=== PATIENT | female | born 1945 | race Caucasian/White ===

== ENCOUNTER 2019-08-14 11:18 | Emergency (ER) | payer MEDICARE, BC ==
[2019-08-14 11:45] VITALS: BP 139/87; PULSE 96
[2019-08-14] MEDS ORDERED: predniSONE 20 MG Tab PO ONE (14:11)
--- NOTE | 2019-08-14 14:14 | EDM.PDOC ---
ED HPI GENERAL MEDICAL PROBLEM - General Chief Complaint: Upper Extremity Injury/Pain Stated Complaint: R WRIST PAIN Time Seen by Provider: 08/14/19 11:33 Source of Information: Reports: Patient History Limitations: Reports: No Limitations - History of Present Illness INITIAL COMMENTS - FREE TEXT/NARRATIVE: Patient is a 74-year-old female who presents with complaints of right wrist redness, pain, swelling that started yesterday afternoon. She said her wrist started getting sore yesterday afternoon and then when she woke this morning it was increasingly painful and swollen. She has been icing the wrist and took some Tylenol prior to coming here. At that time she was not able to move her fingers, however she states it is gradually improving. She does have a history of chronic osteoarthritis. Denies a history of gout. She has had no fever, chills, nausea, vomiting, or diarrhea. Right Wrist Pain Score (Numeric/FACES): 10 - Related Data Allergies Allergy/AdvReac Type Severity Reaction Status Date / Time morphine Allergy Unknown Nausea and Verified 08/14/19 11:37 Vomiting Home Meds: Home Meds Levalbuterol HCl [Xopenex] 2 puff INH ASDIRECTED PRN 03/19/14 [History] amLODIPine [Norvasc] 5 mg PO DAILY 03/19/14 [History] predniSONE [Prednisone] 20 mg PO ASDIRECTED #14 tablet 08/14/19 [Rx] Past Medical History HEENT History: Reports: Impaired Vision Cardiovascular History: Reports: Other (See Below) Other Cardiovascular History: on amlodipine for "poor circulation" Respiratory History: Reports: COPD Gastrointestinal History: Reports: Other (See Below) Other Gastrointestinal History: anorexia, no appetite. - Past Surgical History HEENT Surgical History: Reports: Cataract Surgery Musculoskeletal Surgical History: Reports: Other (See Below) Other Musculoskeletal Surgeries/Procedures:: Right hip replacement, 2015. Social & Family History - Family History Family Medical History: Noncontributory - Tobacco Use Smoking Status *Q: Former Smoker Used Tobacco, but Quit: Yes Month/Year Tobacco Last Used: 07/2013 - Caffeine Use Caffeine Use: Reports: Coffee - Recreational Drug Use Recreational Drug Use: No Review of Systems - Review of Systems Review Of Systems: Comprehensive ROS is negative, except as noted in HPI. ED EXAM, GENERAL - Physical Exam Exam: See Below Exam Limited By: No Limitations General Appearance: Alert, WD/WN, No Apparent Distress Respiratory/Chest: No Respiratory Distress, Lungs Clear, Normal Breath Sounds, No Accessory Muscle Use, Chest Non-Tender Cardiovascular: Normal Peripheral Pulses, Regular Rate, Rhythm, No Edema, No Gallop, No JVD, No Murmur, No Rub Extremities: Other (Redness, swelling, warmth to radial wrist.) Neurological: Alert, Oriented, CN II-XII Intact, Normal Cognition, Normal Gait, Normal Reflexes, No Motor/Sensory Deficits Psychiatric: Normal Affect, Normal Mood Skin Exam: Warm, Dry, Intact, Normal Color, No Rash Course - Vital Signs Last Recorded V/S: Last Vital Signs Temp 98.8 F 08/14/19 11:33 Pulse 96 08/14/19 11:45 Resp 22 H 08/14/19 11:33 BP 139/87 08/14/19 11:45 Pulse Ox 93 L 08/14/19 11:45 - Orders/Labs/Meds Orders: Active Orders 24 hr Category Date Time Status Wrist Comp Min 3V Rt [CR] Stat Exams 08/14/19 11:59 Taken CBC WITH AUTO DIFF [HEME] Stat Lab 08/14/19 13:27 Results SEDIMENTATION RATE AUTO [HEME] Stat Lab 08/14/19 12:03 Ordered DME for Discharge [COMM] Routine Oth 08/14/19 14:11 Ordered Labs: Laboratory Tests 08/14/19 08/14/19 Range/Units 13:27 13:27 WBC 13.05 H (3.98-10.04) K/mm3 RBC 4.44 (3.98-5.22) M/mm3 Hgb 14.0 (11.2-15.7) gm/dl Hct 42.7 (34.1-44.9) % MCV 96.2 H (79.4-94.8) fl MCH 31.5 (25.6-32.2) pg MCHC 32.8 (32.2-35.5) g/dl RDW Std Deviation 45.1 (36.4-46.3) fL Plt Count 312 (182-369) K/mm3 MPV 9.6 (9.4-12.3) fl Neut % (Auto) 72.5 H (34.0-71.1) % Lymph % (Auto) 16.4 L (19.3-51.7) % [place] % (Auto) 9.6 (4.7-12.5) % Eos % (Auto) 0.8 (0.7-5.8) Baso % (Auto) 0.5 (0.1-1.2) % Neut # (Auto) 9.45 H (1.56-6.13) K/mm3 Lymph # (Auto) 2.14 (1.18-3.74) K/mm3 [place] # (Auto) 1.25 H (0.24-0.36) K/mm3 Eos # (Auto) 0.11 (0.04-0.36) K/mm3 Baso # (Auto) 0.07 (0.01-0.08) K/mm3 Uric Acid 4.3 (2.6-6.0) mg/dL C-Reactive Protein 3.0 H* (<1.0) mg/dL Meds: Medications Discontinued Medications Generic Name Dose Route Start Last Admin Trade Name Freq PRN Reason Stop Dose Admin Prednisone 20 mg 08/14/19 14:11 Prednisone PO 08/14/19 14:12 ONETIME ONE Departure - Departure Time of Disposition: 14:14 Disposition: Home, Self-Care 01 Condition: Fair Clinical Impression: Gout Qualifiers: Gout site: wrist Gout etiology: idiopathic Chronicity: acute Laterality: right Qualified Code(s): M10.031 - Idiopathic gout, right wrist - Discharge Information *PRESCRIPTION DRUG MONITORING PROGRAM REVIEWED*: No *COPY OF PRESCRIPTION DRUG MONITORING REPORT IN PATIENT ALPHONSE: No Prescriptions: predniSONE [Prednisone] 20 mg PO ASDIRECTED #14 tablet Referrals: Rebecca Simeon NP [Primary Care Provider] - Forms: ED Department Discharge Additional Instructions: You were seen in the emergency Department today for pain and swelling to her right wrist. X-ray was done and shows no fracture of the wrist. It is possible that she was suffering from gout. A [facility]one [facility] and you have been provided with a wrist splint for comfort. Take the medications as prescribed and wear the wrist splint for comfort. You may also ice the wrist for 20 minutes every 2 hours. Ensure that you are not applying ice directly to the skin. If you're not having substantial improvement in your symptoms over the next 24- 48 hours, I recommend that you call to schedule appointment with a primary care provider. If you experience any worsening symptoms such as fever, chills, nausea, vomiting, weakness or increased redness and swelling, please return to the emergency department. Sepsis Event Note - Evaluation Sepsis Screening Result: No Definite Risk - Focused Exam Vital Signs: Vital Signs Temp Pulse Resp BP Pulse Ox 08/14/19 11:45 96 139/87 93 L 08/14/19 11:33 98.8 F 101 H 22 H 85/66 L 91 L Date Exam was Performed: 08/14/19 Time Exam was Performed: 14:14 - My Orders Last 24 Hours: My Active Orders 08/14/19 11:59 Wrist Comp Min 3V Rt [CR] Stat 08/14/19 12:03 SEDIMENTATION RATE AUTO [HEME] Stat 08/14/19 13:27 CBC WITH AUTO DIFF [HEME] Stat 08/14/19 14:11 DME for Discharge [COMM] Routine - Assessment/Plan Last 24 Hours: My Active Orders 08/14/19 11:59 Wrist Comp Min 3V Rt [CR] Stat 08/14/19 12:03 SEDIMENTATION RATE AUTO [HEME] Stat 08/14/19 13:27 CBC WITH AUTO DIFF [HEME] Stat 08/14/19 14:11 DME for Discharge [COMM] Routine
--- NOTE | 2019-08-15 07:37 | CR ---
Right wrist: Four views of the right wrist were obtained. Comparison: No prior wrist exam. Cysts are noted within the navicular bone and lunate bone. Joint space narrowing is noted between the proximal and distal carpal row. Joint space narrowing is noted off the distal navicular bone. No acute fracture, dislocation or other bony abnormality is seen. Small amount of bony debris is noted around the wrist. Impression: 1. Degenerative change as noted above. 2. Nothing acute is definitely appreciated. Diagnostic code #2 This report was dictated in [place] Standard Time
== END 2019-08-14 14:27 | disposition home or self-care (01) ==
LOC: JD.ED 11:18
DX: M10.031 Idiopathic gout, right wrist (principal); J44.9 Chronic obstructive pulmonary disease, unspecified; Z88.5 Allergy status to narcotic agent; Z87.891 Personal history of nicotine dependence; Z79.52 Long term (current) use of systemic steroids
CPT/HCPCS: 36415; 73110; 84550; 85025; 85652; 86140; 99283; A9270

== ENCOUNTER 2020-04-02 07:46 | Emergency (ER) | payer MEDICARE, BC ==
[2020-04-02 07:56] VITALS: PULSE 144
[2020-04-02] MEDS ORDERED: Diltiazem 50 MG/10 ML SDV IVPUSH ONE (08:03)
[2020-04-02] MEDS ORDERED: Sodium Chloride 0.9% 10 ML Syringe FLUSH PRN (08:03)
[2020-04-02] MEDS ORDERED: Sodium Chloride 0.9% 1,000 ML IV SCH (08:15)
--- NOTE | 2020-04-02 08:27 | EDM.PDOC ---
ED HPI GENERAL MEDICAL PROBLEM - General Chief Complaint: Cardiovascular Problem Stated Complaint: [facility] Time Seen by Provider: 04/02/20 07:52 Source of Information: Reports: Patient, EMS, RN Notes Reviewed - History of Present Illness INITIAL COMMENTS - FREE TEXT/NARRATIVE: 74 yr old female with onset of palpitations, weakness, dizziness about 5 hrs ago. Has had brief episodes of palpitations in the past. hx of Htn. Has smoked in the past. No known hx CAD. No chest or abd pain at time of eval. Treatments CHARGE HAND: Reports: EKG, IV/IO - Related Data Allergies Allergy/AdvReac Type Severity Reaction Status Date / Time morphine Allergy Unknown Nausea and Verified 04/02/20 07:56 Vomiting Home Meds: Home Meds amLODIPine [Norvasc] 5 mg PO DAILY 03/19/14 [History] Albuterol [Ventolin HFA] 2 puff INH BID PRN 04/02/20 [History] Budesonide/Formoterol [Symbicort 160-4.5 MCG] 2 puff INH DAILY 04/02/20 [History] Past Medical History HEENT History: Reports: Impaired Vision Cardiovascular History: Reports: Other (See Below) Other Cardiovascular History: on amlodipine for "poor circulation" Respiratory History: Reports: COPD Gastrointestinal History: Reports: Other (See Below) Other Gastrointestinal History: anorexia, no appetite. - Past Surgical History HEENT Surgical History: Reports: Cataract Surgery Musculoskeletal Surgical History: Reports: Hip Replacement Social & Family History - Family History Family Medical History: Noncontributory - Tobacco Use Smoking Status *Q: Light Tobacco Smoker Years of Tobacco use: 60 Packs/Tins Daily: 0.1 - Caffeine Use Caffeine Use: Reports: Coffee - Recreational Drug Use Recreational Drug Use: No ED ROS GENERAL - Review of Systems Review Of Systems: See Below Constitutional: Denies: Fever, Chills, Diaphoresis HEENT: Reports: No Symptoms Respiratory: Denies: Shortness of Breath, Cough Cardiovascular: Reports: Chest Pain (gone), Palpitations GI/Abdominal: Denies: Abdominal Pain, Nausea, Vomiting Musculoskeletal: Denies: Shoulder Pain, Arm Pain Neurological: Reports: Dizziness ED EXAM, GENERAL - Physical Exam Exam: See Below General Appearance: Alert, No Apparent Distress Head: Atraumatic Neck: Normal Inspection, Other (No JVD) Respiratory/Chest: No Respiratory Distress, Lungs Clear, Normal Breath Sounds Cardiovascular: Irregularly Irregular Back Exam: No: CVA Tenderness (L), CVA Tenderness (R) Neurological: Alert, Oriented, No Motor/Sensory Deficits Skin Exam: Warm, Dry, Normal Color EKG INTERPRETATION EKG Date: 04/02/20 Rhythm: A-Fib P-Wave: Absent QRS: Normal ST-T: Other (mild nonspecific st changes) Course - Vital Signs Last Recorded V/S: Last Vital Signs Temp 97.9 F 04/02/20 07:53 Pulse 144 H 04/02/20 07:53 Resp 19 04/02/20 09:15 BP 104/68 04/02/20 09:15 Pulse Ox 98 04/02/20 09:15 - Orders/Labs/Meds Orders: Active Orders 24 hr Category Date Time Status Chest 1V Frontal [CR] Stat Exams 04/02/20 08:02 Taken Sodium Chloride 0.9% [Normal Saline] 1,000 ml Med 04/02/20 08:15 Active IV ASDIRECTED Sodium Chloride 0.9% [Saline Flush] Med 04/02/20 08:03 Active 10 ml FLUSH ASDIRECTED PRN Peripheral IV Insertion Adult [OM.PC] Stat Oth 04/02/20 08:02 Ordered Medication Orders Sodium Chloride (Normal Saline) 1,000 mls @ 150 mls/hr IV ASDIRECTED [facility] Last Admin: 04/02/20 08:12 Dose: 150 mls/hr Documented by: MITA Sodium Chloride (Saline Flush) 10 ml FLUSH ASDIRECTED PRN PRN Reason: Keep Vein Open Last Admin: 04/02/20 08:13 Dose: 10 ml Documented by: MITA Labs: Laboratory Tests 04/02/20 04/02/20 04/02/20 Range/Units 08:15 08:15 08:15 WBC 13.58 H (3.98-10.04) K/mm3 RBC 4.55 (3.98-5.22) M/mm3 Hgb 14.7 (11.2-15.7) gm/dl Hct 44.9 (34.1-44.9) % MCV 98.7 H (79.4-94.8) fl MCH 32.3 H (25.6-32.2) pg MCHC 32.7 (32.2-35.5) g/dl RDW Std Deviation 52.6 H (36.4-46.3) fL Plt Count 342 (182-369) K/mm3 MPV 8.5 L (9.4-12.3) fl Neut % (Auto) 72.4 H (34.0-71.1) % Lymph % (Auto) 16.6 L (19.3-51.7) % [place] % (Auto) 8.3 (4.7-12.5) % Eos % (Auto) 0.4 L (0.7-5.8) Baso % (Auto) 0.5 (0.1-1.2) % Neut # (Auto) 9.84 H (1.56-6.13) K/mm3 Lymph # (Auto) 2.25 (1.18-3.74) K/mm3 [place] # (Auto) 1.13 H (0.24-0.36) K/mm3 Eos # (Auto) 0.05 (0.04-0.36) K/mm3 Baso # (Auto) 0.07 (0.01-0.08) K/mm3 Manual Slide Review Normal smear PT 10.5 (9.7-11.7) SECONDS INR 0.98 Sodium 139 (136-145) mEq/L Potassium 3.8 (3.5-5.1) mEq/L Chloride 102 (98-107) mEq/L Carbon Dioxide 28 (21-32) mEq/L Anion Gap 12.8 (5-15) BUN 16 (7-18) mg/dL Creatinine 0.8 (0.55-1.02) mg/dL Est Cr Clr Drug Dosing TNP Estimated GFR (MDRD) > 60 (>60) mL/min BUN/Creatinine Ratio 20.0 H (14-18) Glucose 106 (83-115) mg/dL Calcium 8.6 (8.5-10.1) mg/dL Total Bilirubin 0.7 (0.2-1.0) mg/dL AST 16 (15-37) U/L ALT 33 (14-59) U/L Alkaline Phosphatase 62 (46-116) U/L Troponin I < 0.017 (0.00-0.056) ng/mL Total Protein 5.9 L (6.4-8.2) g/dl Albumin 3.1 L (3.4-5.0) g/dl Globulin 2.8 gm/dL Albumin/Globulin Ratio 1.1 (1-2) Meds: Medications Generic Name Dose Route Start Last Admin Trade Name Freq PRN Reason Stop Dose Admin Sodium Chloride 1,000 mls @ 150 mls/hr 04/02/20 08:15 04/02/20 08:12 Normal Saline IV 150 mls/hr ASDIRECTED [place] Administration Sodium Chloride 10 ml 04/02/20 08:03 04/02/20 08:13 Saline Flush FLUSH 10 ml ASDIRECTED PRN Administration Keep Vein Open Discontinued Medications Generic Name Dose Route Start Last Admin Trade Name Freq PRN Reason Stop Dose Admin Diltiazem HCl 20 mg 04/02/20 08:03 04/02/20 08:13 Cardizem IVPUSH 04/02/20 08:04 10 mg ONETIME ONE Administration - Re-Assessments/Exams Free Text/Narrative Re-Assessment/Exam: 04/02/20 08:24 Pt converted to NSR a very short time ago after diltiazam 10 mg IV. 04/02/20 10:25. Continued in NSR, CXR, labs good. Discharge instr. as documented. Departure - Departure Time of Disposition: 09:45 Disposition: Home, Self-Care 01 Condition: Fair Clinical Impression: Atrial fibrillation Qualifiers: Atrial fibrillation type: paroxysmal Qualified Code(s): I48.0 - Paroxysmal atrial fibrillation Instructions: Atrial Fibrillation, [id number] Referrals: Rebecca Simeon [facility]INE [Primary Care Provider] - Forms: ED Department Discharge Additional Instructions: You were on atrial fibrillation on arrival to ED as discussed but you converted back to your normal heart rythm fairly quickly which is good. Rest today, continue current meds. See June Cintron in about 1 week for recheck, call for appt. Return to ED as needed if symptoms reoccuring or worsening in any way. Sepsis Event Note (ED) - Evaluation Sepsis Screening Result: No Definite Risk - Focused Exam Vital Signs: Vital Signs Temp Pulse Resp BP Pulse Ox 04/02/20 09:15 19 104/68 98 04/02/20 07:53 97.9 F 144 H 17 116/95 H 98 - My Orders Last 24 Hours: My Active Orders 04/02/20 08:02 Chest 1V Frontal [CR] Stat Peripheral IV Insertion Adult [OM.PC] Stat 04/02/20 08:03 Sodium Chloride 0.9% [Saline Flush] 10 ml FLUSH ASDIRECTED PRN 04/02/20 08:15 Sodium Chloride 0.9% [Normal Saline] 1,000 ml IV ASDIRECTED - Assessment/Plan Last 24 Hours: My Active Orders 04/02/20 08:02 Chest 1V Frontal [CR] Stat Peripheral IV Insertion Adult [OM.PC] Stat 04/02/20 08:03 Sodium Chloride 0.9% [Saline Flush] 10 ml FLUSH ASDIRECTED PRN 04/02/20 08:15 Sodium Chloride 0.9% [Normal Saline] 1,000 ml IV ASDIRECTED
[2020-04-02 09:57] VITALS: BP 104/68
--- NOTE | 2020-04-02 14:22 | CR ---
Chest: Portable view of the chest was obtained. Comparison: Prior chest x-ray of 03/19/14. Heart size and mediastinum are normal. Lungs are clear but hyperinflated. Bony structures are grossly intact. Impression: 1. Emphysematous change. 2. Nothing acute is seen on portable chest x-ray. Diagnostic code #2 This report was dictated in MDT
== END 2020-04-02 09:55 | disposition home or self-care (01) ==
LOC: JD.ED 07:46
DX: I48.0 Paroxysmal atrial fibrillation (principal); I10 Essential (primary) hypertension; F17.210 Nicotine dependence, cigarettes, uncomplicated; J44.9 Chronic obstructive pulmonary disease, unspecified; Z79.899 Other long term (current) drug therapy; Z88.5 Allergy status to narcotic agent
CPT/HCPCS: 36415; 71045; 80053; 84484; 85025; 85610; 93005; 96361; 96374; 99285; J3490; J7030; 93010; 99284

== ENCOUNTER 2020-04-06 12:28 | Emergency (ER) | payer MEDICARE, BC ==
[2020-04-06] MEDS ORDERED: Sodium Chloride 0.9% 10 ML Syringe FLUSH PRN ×2 (13:05→13:37)
[2020-04-06] MEDS ORDERED: Diltiazem 120 MG Cap.CD PO ONE (13:06)
[2020-04-06 13:19] VITALS: BP 118/77; PULSE 99
--- NOTE | 2020-04-06 13:23 | EDM.PDOC ---
ED HPI GENERAL MEDICAL PROBLEM - General Chief Complaint: Cardiovascular Problem Stated Complaint: A FIB Time Seen by Provider: 04/06/20 12:34 Source of Information: Reports: Patient History Limitations: Reports: No Limitations - History of Present Illness INITIAL COMMENTS - FREE TEXT/NARRATIVE: The patient presents with a rapid heart rate and shortness of breath. She was here 4 days ago for A-fib with RVR. She was given cardizem and she converted. She has been having a rapid heart rate and shortness of breath since then. She has a cough with white phlegm. She has no chest pain. She has no abdominal pain, nausea or vomiting. She has no fever or chills. She does have know COPD and she does smoke some still. She is on albuterol and cymbacort. Onset: Gradual Duration: Day(s): Severity: Moderate Improves with: Reports: None Worsens with: Reports: None Associated Symptoms: Reports: Cough, Shortness of Breath. Denies: Chest Pain, Fever/Chills, Headaches, Nausea/Vomiting - Related Data Allergies Allergy/AdvReac Type Severity Reaction Status Date / Time morphine Allergy Unknown Nausea and Verified 04/02/20 07:56 Vomiting Home Meds: Home Meds amLODIPine [Norvasc] 5 mg PO DAILY 03/19/14 [History] Albuterol [Ventolin HFA] 2 puff INH BID PRN 04/02/20 [History] Budesonide/Formoterol [Symbicort 160-4.5 MCG] 2 puff INH DAILY 04/02/20 [History] Apixaban [Eliquis] 5 mg PO BID #60 tablet 04/06/20 [Rx] Diltiazem [Cardizem CD] 120 mg PO DAILY #30 cap.er 04/06/20 [Rx] predniSONE [Prednisone] 40 mg PO DAILY #10 tablet 04/06/20 [Rx] Past Medical History HEENT History: Reports: Impaired Vision Cardiovascular History: Reports: Other (See Below) Other Cardiovascular History: on amlodipine for "poor circulation" Respiratory History: Reports: COPD Gastrointestinal History: Reports: Other (See Below) Other Gastrointestinal History: anorexia, no appetite. - Past Surgical History HEENT Surgical History: Reports: Cataract Surgery Musculoskeletal Surgical History: Reports: Hip Replacement Social & Family History - Family History Family Medical History: Noncontributory - Caffeine Use Caffeine Use: Reports: Coffee ED ROS GENERAL - Review of Systems Review Of Systems: See Below Constitutional: Reports: No Symptoms HEENT: Reports: No Symptoms Respiratory: Reports: Shortness of Breath, Cough Cardiovascular: Reports: Palpitations. Denies: Chest Pain Endocrine: Reports: No Symptoms GI/Abdominal: Reports: No Symptoms : Reports: No Symptoms ED EXAM, GENERAL - Physical Exam Exam: See Below Exam Limited By: No Limitations General Appearance: Alert, No Apparent Distress Ears: Normal External Exam Nose: Normal Inspection Head: Atraumatic, Normocephalic Neck: Normal Inspection Respiratory/Chest: No Respiratory Distress, Decreased Breath Sounds Cardiovascular: Regular Rate, Rhythm, No Edema, No Murmur GI/Abdominal: Soft, Non-Tender, No Organomegaly, No Mass Back Exam: Normal Inspection Extremities: Normal Inspection Neurological: Alert, Oriented, No Motor/Sensory Deficits EKG INTERPRETATION EKG Date: 04/06/20 Time: 12:41 Rhythm: Other (sinus tachycardia) Rate (Beats/Min): 103 [place]: Normal P-Wave: Present QRS: Normal ST-T: Normal QT: Normal Course - Vital Signs Last Recorded V/S: Last Vital Signs Temp 98.9 F 04/06/20 12:51 Pulse 99 04/06/20 13:18 Resp 24 H 04/06/20 12:51 BP 118/77 04/06/20 13:18 Pulse Ox 93 L 04/06/20 12:51 - Orders/Labs/Meds Orders: Active Orders 24 hr Category Date Time Status Cardiac Monitoring [RC] . DIRECTED Care 04/06/20 13:05 Active EKG 12 Lead [EKG Documentation Completion] [RC] STAT Care 04/06/20 12:47 Active Oxygen Therapy [RC] PRN Care 04/06/20 13:05 Active Peripheral IV Care [RC] . DIRECTED Care 04/06/20 13:06 Active Sodium Chloride 0.9% [Normal Saline] 100 ml Med 04/06/20 15:00 Active IV ASDIRECTED Sodium Chloride 0.9% [Saline Flush] Med 04/06/20 13:05 Active 10 ml FLUSH ASDIRECTED PRN Sodium Chloride 0.9% [Saline Flush] Med 04/06/20 13:37 Active 10 ml FLUSH ONETIME PRN Peripheral IV Insertion Adult [OM.PC] Stat Oth 04/06/20 13:05 Ordered Medication Orders Sodium Chloride (Normal Saline) 100 mls @ 60 mls/hr IV ASDIRECTED LORENA Last Admin: 04/06/20 15:10 Dose: 60 mls/hr Documented by: BISHOP Sodium Chloride (Saline Flush) 10 ml FLUSH ASDIRECTED PRN PRN Reason: Keep Vein Open Last Admin: 04/06/20 13:19 Dose: 10 ml Documented by: FRANSISCO Sodium Chloride (Saline Flush) 10 ml FLUSH ONETIME PRN PRN Reason: Keep Vein Open Labs: Laboratory Tests 04/06/20 04/06/20 04/06/20 Range/Units 12:50 12:50 12:50 WBC 10.99 H (3.98-10.04) K/mm3 RBC 4.10 (3.98-5.22) M/mm3 Hgb 13.3 (11.2-15.7) gm/dl Hct 40.2 (34.1-44.9) % MCV 98.0 H (79.4-94.8) fl MCH 32.4 H (25.6-32.2) pg MCHC 33.1 (32.2-35.5) g/dl RDW Std Deviation 49.8 H (36.4-46.3) fL Plt Count 347 (182-369) K/mm3 MPV 9.1 L (9.4-12.3) fl Neut % (Auto) 69.2 (34.0-71.1) % Lymph % (Auto) 17.3 L (19.3-51.7) % [place] % (Auto) 11.7 (4.7-12.5) % Eos % (Auto) 0.8 (0.7-5.8) Baso % (Auto) 0.5 (0.1-1.2) % Neut # (Auto) 7.60 H (1.56-6.13) K/mm3 Lymph # (Auto) 1.90 (1.18-3.74) K/mm3 [place] # (Auto) 1.29 H (0.24-0.36) K/mm3 Eos # (Auto) 0.09 (0.04-0.36) K/mm3 Baso # (Auto) 0.06 (0.01-0.08) K/mm3 Manual Slide Review Abnormal smear D-Dimer, Quantitative 1.06 H (0.19-0.50) mg/L Sodium 135 L (136-145) mEq/L Potassium 3.3 L (3.5-5.1) mEq/L Chloride 99 (98-107) mEq/L Carbon Dioxide 29 (21-32) mEq/L Anion Gap 10.3 (5-15) BUN 11 (7-18) mg/dL Creatinine 0.8 (0.55-1.02) mg/dL Est Cr Clr Drug Dosing TNP Estimated GFR (MDRD) > 60 (>60) mL/min BUN/Creatinine Ratio 13.8 L (14-18) Glucose 101 (83-115) mg/dL Calcium 9.0 (8.5-10.1) mg/dL Ferritin (8-252) ng/ml Total Bilirubin 0.6 (0.2-1.0) mg/dL AST 19 (15-37) U/L ALT 27 (14-59) U/L Alkaline Phosphatase 66 (46-116) U/L Lactate Dehydrogenase 213 (81-234) U/L Troponin I < 0.017 (0.00-0.056) ng/mL C-Reactive Protein 15.4 H* (<1.0) mg/dL Total Protein 6.6 (6.4-8.2) g/dl Albumin 3.0 L (3.4-5.0) g/dl Globulin 3.6 gm/dL Albumin/Globulin Ratio 0.8 L (1-2) SARS CoV-2 RNA Rapid [place] (NEGATIVE) 04/06/20 04/06/20 Range/Units 12:50 14:14 WBC (3.98-10.04) K/mm3 RBC (3.98-5.22) M/mm3 Hgb (11.2-15.7) gm/dl Hct (34.1-44.9) % MCV (79.4-94.8) fl MCH (25.6-32.2) pg MCHC (32.2-35.5) g/dl RDW Std Deviation (36.4-46.3) fL Plt Count (182-369) K/mm3 MPV (9.4-12.3) fl Neut % (Auto) (34.0-71.1) % Lymph % (Auto) (19.3-51.7) % [place] % (Auto) (4.7-12.5) % Eos % (Auto) (0.7-5.8) Baso % (Auto) (0.1-1.2) % Neut # (Auto) (1.56-6.13) K/mm3 Lymph # (Auto) (1.18-3.74) K/mm3 [place] # (Auto) (0.24-0.36) K/mm3 Eos # (Auto) (0.04-0.36) K/mm3 Baso # (Auto) (0.01-0.08) K/mm3 Manual Slide Review D-Dimer, Quantitative (0.19-0.50) mg/L Sodium (136-145) mEq/L Potassium (3.5-5.1) mEq/L Chloride (98-107) mEq/L Carbon Dioxide (21-32) mEq/L Anion Gap (5-15) BUN (7-18) mg/dL Creatinine (0.55-1.02) mg/dL Est Cr Clr Drug Dosing Estimated GFR (MDRD) (>60) mL/min BUN/Creatinine Ratio (14-18) Glucose (83-115) mg/dL Calcium (8.5-10.1) mg/dL Ferritin 335 H (8-252) ng/ml Total Bilirubin (0.2-1.0) mg/dL AST (15-37) U/L ALT (14-59) U/L Alkaline Phosphatase (46-116) U/L Lactate Dehydrogenase (81-234) U/L Troponin I (0.00-0.056) ng/mL C-Reactive Protein (<1.0) mg/dL Total Protein (6.4-8.2) g/dl Albumin (3.4-5.0) g/dl Globulin gm/dL Albumin/Globulin Ratio (1-2) SARS CoV-2 RNA Rapid [place] Negative (NEGATIVE) Meds: Medications Generic Name Dose Route Start Last Admin Trade Name Freq PRN Reason Stop Dose Admin Sodium Chloride 100 mls @ 60 mls/hr 04/06/20 15:00 04/06/20 15:10 Normal Saline IV 60 mls/hr ASDIRECTED LORENA Administration Sodium Chloride 10 ml 04/06/20 13:05 04/06/20 13:19 Saline Flush FLUSH 10 ml ASDIRECTED PRN Administration Keep Vein Open Sodium Chloride 10 ml 04/06/20 13:37 Saline Flush FLUSH ONETIME PRN Keep Vein Open Discontinued Medications Generic Name Dose Route Start Last Admin Trade Name Clarisse PRN Reason Stop Dose Admin Diltiazem HCl 120 mg 04/06/20 13:06 04/06/20 13:18 Cardizem Cd PO 04/06/20 13:07 120 mg ONETIME ONE Administration Sodium Chloride 45 mls @ 40 mls/hr 04/06/20 13:45 Normal Saline IV ASDIRECTED LORENA Iopamidol 100 ml 04/06/20 13:37 Isovue-370 (76%) IVPUSH 04/06/20 13:38 ONETIME ONE Iopamidol 100 ml 04/06/20 14:53 04/06/20 15:09 Isovue-370 (76%) IVPUSH 04/06/20 14:54 100 ml ONETIME ONE Administration Sodium Chloride 10 ml 04/06/20 14:53 04/06/20 15:10 Saline Flush FLUSH 04/06/20 14:54 10 ml ONETIME ONE Administration - Re-Assessments/Exams Free Text/Narrative Re-Assessment/Exam: 04/06/20 13:26 I ordered oxygen PRN, IV saline lock, CXR, EKG, COVID 19 and labs. 04/06/20 15:14 Her EKG shows a sinus tachycardia with no acute changes. Her WBC is elevated at 10.99. Her D-dimer is elevated over 1. Her Na is 135. Her K is a little low at 3.3. Her troponin is negative. Her CRP is elevated at 15.4. Her COVID 19 test is negative. I ordered a CT of her chest and it shows emphysematous change and other findings. No findings of PE. Nothing acute is appreciated on CT study of the chest. She is not in A-fib now. I will switch her to cardizem and get her on eliquis and get her on some prednisone for her breathing. Departure - Departure Time of Disposition: 15:20 Disposition: Home, Self-Care 01 Condition: Good Clinical Impression: COPD exacerbation Atrial fibrillation Qualifiers: Atrial fibrillation type: paroxysmal Qualified Code(s): I48.0 - Paroxysmal atrial fibrillation Prescriptions: Diltiazem [Cardizem CD] 120 mg PO DAILY #30 cap.er Apixaban [Eliquis] 5 mg PO BID #60 tablet predniSONE [Prednisone] 40 mg PO DAILY #10 tablet Referrals: Rebecca Simeon NP [Primary Care Provider] - Maria M Plata NP [Ordering Only Provider] - 1 Week Forms: ED Department Discharge Additional Instructions: Take the cardizem CD instead of the amlodipine. Use your rescue inhaler 2 puffs every 6 hours as needed. Take the prednisone 40mg daily. Take the eliquis which is a blood thinner 2 times per day. Follow up with Maria M next week. Please return if you are worse. Sepsis Event Note (ED) - Evaluation Sepsis Screening Result: No Definite Risk - Focused Exam Vital Signs: Vital Signs Temp Pulse Pulse Resp BP BP Pulse Ox 04/06/20 13:18 99 118/77 04/06/20 12:51 98.9 F 103 H 24 H 122/86 93 L - My Orders Last 24 Hours: My Active Orders 04/06/20 12:47 EKG 12 Lead [EKG Documentation Completion] [RC] STAT 04/06/20 13:05 Cardiac Monitoring [RC] . DIRECTED Oxygen Therapy [RC] PRN Sodium Chloride 0.9% [Saline Flush] 10 ml FLUSH ASDIRECTED PRN Peripheral IV Insertion Adult [OM.PC] Stat 04/06/20 13:06 Peripheral IV Care [RC] . DIRECTED 04/06/20 13:37 Sodium Chloride 0.9% [Saline Flush] 10 ml FLUSH ONETIME PRN 04/06/20 15:00 Sodium Chloride 0.9% [Normal Saline] 100 ml IV ASDIRECTED - Assessment/Plan Last 24 Hours: My Active Orders 04/06/20 12:47 EKG 12 Lead [EKG Documentation Completion] [RC] STAT 04/06/20 13:05 Cardiac Monitoring [RC] . DIRECTED Oxygen Therapy [RC] PRN Sodium Chloride 0.9% [Saline Flush] 10 ml FLUSH ASDIRECTED PRN Peripheral IV Insertion Adult [OM.PC] Stat 04/06/20 13:06 Peripheral IV Care [RC] . DIRECTED 04/06/20 13:37 Sodium Chloride 0.9% [Saline Flush] 10 ml FLUSH ONETIME PRN 09/20/20 15:00 Sodium Chloride 0.9% [Normal Saline] 100 ml IV ASDIRECTED
[2020-04-06] MEDS ORDERED: Iopamidol 755 Mg/ML 100 ML Bottle IVPUSH ONE ×2 (13:37→14:53)
[2020-04-06] MEDS ORDERED: Sodium Chloride 0.9% 45 ML IV SCH (13:45)
[2020-04-06] MEDS ORDERED: Sodium Chloride 0.9% 10 ML Syringe FLUSH ONE (14:53)
--- NOTE | 2020-04-06 14:56 | CR ---
Chest: Portable view of the chest was obtained. Comparison: Prior chest x-ray of 04/02/20. Heart size and mediastinum are normal. Lungs are clear but hyperinflated. Bony structures shows degenerative change within the shoulders. Scoliosis is noted within the spine. Osteopenia is noted. Impression: 1. Emphysematous change. 2. Other findings as noted above. Nothing acute is seen. Diagnostic code #2 This report was dictated in MDT
--- NOTE | 2020-04-06 14:59 | CT ---
CT chest Technique: Multiple axial sections through the chest were obtained. Intravenous contrast was utilized. Study performed as a pulmonary angiogram protocol. Comparison: No prior chest CT is available, prior chest x-ray performed on the same day (1:13 PM). Findings: Small hiatal hernia is noted. Small cyst is noted within the left kidney. Other visualized abdominal structures show nothing acute. No pericardial thickening is seen. Mild atheromatous irregularity is seen within the coronary arteries. Aorta shows atherosclerotic calcification. Ascending aorta slightly ectatic at 3.6 cm. No aortic dissection is seen. Pulmonary arteries are well-opacified. No filling defects are seen to indicate pulmonary embolism. No mediastinal or hilar adenopathy is seen. No pericardial thickening is seen. Emphysematous changes are seen throughout both lungs. Mild parenchymal scarring seen within the upper lungs. No acute parenchymal change is seen. No pleural effusions are noted. No pneumothorax is appreciated. Bone window settings were reviewed. Impression: 1. Emphysematous change and other findings as noted above which are nonacute. 2. No findings of pulmonary embolism. 3. Nothing acute is appreciated on CT study of the chest. Diagnostic code #2 This report was dictated in MDT
[2020-04-06] MEDS ORDERED: Sodium Chloride 0.9% 100 ML IV SCH (15:00)
== END 2020-04-06 15:30 | disposition home or self-care (01) ==
LOC: JD.ED 12:28
DX: J44.1 Chronic obstructive pulmonary disease with (acute) exacerbation (principal); I48.0 Paroxysmal atrial fibrillation; Z20.828 Contact with and (suspected) exposure to other viral communicable diseases; Z88.5 Allergy status to narcotic agent; Z79.899 Other long term (current) drug therapy
CPT/HCPCS: 36415; 71045; 71275; 80053; 82728; 83615; 84484; 85025; 85379; 86140; 93005; 99285; A9270; J7050; Q9967; U0002; 93010; 99284

== ENCOUNTER 2020-11-15 01:13 | Emergency (ER) | payer MEDICARE, BC ==
[2020-11-15 01:20] VITALS: BP 112/87; PULSE 145
--- NOTE | 2020-11-15 05:13 | EDM.PDOC ---
ED HPI GENERAL MEDICAL PROBLEM - General Chief Complaint: Cardiovascular Problem Stated Complaint: [facility] Time Seen by Provider: 11/15/20 02:10 - History of Present Illness INITIAL COMMENTS - FREE TEXT/NARRATIVE: 75-year-old female presents the emergency room with atrial fibrillation and palpitations. This started roughly 30 minutes before arrival. Patient's felt her pulse too fast. She waited about 30 minutes and then called EMS. She is not had associated chest pain with this and she is not had any breathing discomfort. Patient has a history of A. fib she is currently taking Cardizem and she is on Eliquis. Patient states that when her A. fib accepted usually at night and she wonders why. Patient has no other complaints at this time. Treatments RN PSYCHIATRIC: Reports: IV/IO - Related Data Allergies Allergy/AdvReac Type Severity Reaction Status Date / Time morphine AdvReac Severe Nausea and Verified 11/15/20 01:20 Vomiting Home Meds: Home Meds Albuterol [Ventolin HFA] 2 puff INH BID PRN 04/02/20 [History] Budesonide/Formoterol [Symbicort 160-4.5 MCG] 2 puff INH DAILY 04/02/20 [History] Apixaban [Eliquis] 5 mg PO BID #60 tablet 04/06/20 [Rx] Diltiazem [Cardizem CD] 120 mg PO DAILY #30 cap.er 04/06/20 [Rx] Past Medical History HEENT History: Reports: Impaired Vision Cardiovascular History: Reports: Afib Other Cardiovascular History: on amlodipine for "poor circulation" Respiratory History: Reports: COPD Gastrointestinal History: Reports: Other (See Below) Other Gastrointestinal History: anorexia, no appetite. Hematologic History: Reports: Anticoagulation Therapy - Past Surgical History HEENT Surgical History: Reports: Cataract Surgery Musculoskeletal Surgical History: Reports: Hip Replacement Other Musculoskeletal Surgeries/Procedures:: Right hip replacement, 2015. Social & Family History - Family History Family Medical History: No Pertinent Family History - Tobacco Use Tobacco Use Status *Q: Current Every Day Tobacco User Years of Tobacco use: 61 Packs/Tins Daily: 0.1 - Caffeine Use Caffeine Use: Reports: Coffee - Recreational Drug Use Recreational Drug Use: Yes Recreational Drug Type: Reports: Marijuana/Hashish ED ROS GENERAL - Review of Systems Review Of Systems: See Below Constitutional: Reports: No Symptoms HEENT: Reports: No Symptoms, Vertigo Cardiovascular: Reports: Palpitations. Denies: Chest Pain, Dyspnea on Exertion, Syncope Endocrine: Reports: No Symptoms GI/Abdominal: Reports: No Symptoms : Reports: No Symptoms Musculoskeletal: Reports: No Symptoms Skin: Reports: No Symptoms Neurological: Reports: No Symptoms ED EXAM, GENERAL - Physical Exam Exam: See Below Exam Limited By: No Limitations General Appearance: Alert, No Apparent Distress, Other (Pulse rate is initially pretty quick but she seems to be tolerating it pretty well) Head: Atraumatic, Normocephalic Neck: Normal Inspection, Supple, Non-Tender, Full Range of Motion. No: Lymphadenopathy (L), Lymphadenopathy (R) Respiratory/Chest: No Respiratory Distress, Lungs Clear, Normal Breath Sounds Cardiovascular: Regular Rate, Rhythm, No Edema, No Murmur, Other (My initial exam the patient already spontaneously converted into normal sinus rhythm) GI/Abdominal: Normal Bowel Sounds, Soft, Non-Tender Back Exam: Normal Inspection, Full Range of Motion. No: CVA Tenderness (L), CVA Tenderness (R) Extremities: Normal Inspection, No Pedal Edema Neurological: Alert, Oriented, Normal Cognition #1 Interpretation EKG Date: 11/15/20 Rhythm: Other (Atrial fibrillation with rapid ventricular response) Rate (Beats/Min): 146 [place]: Normal P-Wave: Absent QRS: Normal ST-T: Other (Nonspecific changes most likely related to tachycardia) QT: Prolonged (Borderline) Comparison: No Change (No significant QRS morphology or ST-T variation from 04/06/2020 however now she is in A. fib with RVR) #2 Interpretation EKG Date: 11/15/20 Rhythm: NSR [place]: Normal P-Wave: Present QRS: Other (Possible Q waves in V2 this might be a normal variant) ST-T: Other (Nonspecific nondiagnostic ST depression inferior leads) QT: Normal Comparison: Change From Previous EKG (Little more pronounced ST depression inferior leads compared to 04/06/2020) Course - Vital Signs Last Recorded V/S: Last Vital Signs Temp 36.4 C 11/15/20 01:17 Pulse 145 H 11/15/20 01:17 Resp 16 11/15/20 01:17 BP 112/87 11/15/20 01:17 Pulse Ox 97 11/15/20 01:17 - Orders/Labs/Meds Orders: Active Orders 24 hr Category Date Time Status EKG 12 Lead [EKG Documentation Completion] [] ROUTINE Care 11/15/20 01:15 Active EKG 12 Lead [EKG Documentation Completion] [] ROUTINE Care 11/15/20 01:23 Active Chest 1V Frontal [CR] Stat Exams 11/15/20 01:39 Taken Labs: Laboratory Tests 11/15/20 11/15/20 Range/Units 02:08 02:08 WBC 9.70 (3.98-10.04) K/mm3 RBC 4.17 (3.98-5.22) M/mm3 Hgb 13.0 (11.2-15.7) gm/dl Hct 39.3 (34.1-44.9) % MCV 94.2 D (79.4-94.8) fl MCH 31.2 (25.6-32.2) pg MCHC 33.1 (32.2-35.5) g/dl RDW Std Deviation 45.9 (36.4-46.3) fL Plt Count 312 (182-369) K/mm3 MPV 9.6 (9.4-12.3) fl Neut % (Auto) 62.9 (34.0-71.1) % Lymph % (Auto) 21.4 (19.3-51.7) % [place] % (Auto) 8.8 (4.7-12.5) % Eos % (Auto) 6.0 H (0.7-5.8) Baso % (Auto) 0.8 (0.1-1.2) % Neut # (Auto) 6.10 (1.56-6.13) K/mm3 Lymph # (Auto) 2.08 (1.18-3.74) K/mm3 [place] # (Auto) 0.85 H (0.24-0.36) K/mm3 Eos # (Auto) 0.58 H (0.04-0.36) K/mm3 Baso # (Auto) 0.08 (0.01-0.08) K/mm3 Sodium 137 (136-145) mEq/L Potassium 3.8 (3.5-5.1) mEq/L Chloride 103 (98-107) mEq/L Carbon Dioxide 25 (21-32) mEq/L Anion Gap 12.8 (5-15) BUN 15 (7-18) mg/dL Creatinine 0.4 L (0.55-1.02) mg/dL Est Cr Clr Drug Dosing 88.36 mL/min Estimated GFR (MDRD) > 60 (>60) mL/min BUN/Creatinine Ratio 37.5 H (14-18) Glucose 102 (83-115) mg/dL Calcium 9.0 (8.5-10.1) mg/dL Magnesium 2.1 (1.8-2.4) mg/dl Total Bilirubin 0.3 (0.2-1.0) mg/dL AST 18 (15-37) U/L ALT 27 (14-59) U/L Alkaline Phosphatase 118 H (46-116) U/L Troponin I < 0.017 (0.00-0.056) ng/mL Total Protein 6.6 (6.4-8.2) g/dl Albumin 3.3 L (3.4-5.0) g/dl Globulin 3.3 gm/dL Albumin/Globulin Ratio 1.0 (1-2) - Re-Assessments/Exams Free Text/Narrative Re-Assessment/Exam: 11/15/20 05:15 Shortly after arrival to the emergency department the patient spontaneously converted to sinus rhythm normal rate. Her laboratory evaluation including troponin are negative. I was hoping to recheck another troponin prior to the patient leaving but the patient really would like to go home at this point. We will not adjust medications at this time as she usually does pretty good. Her systolics are usually in the low 120s. And I do not want to risk her having symptomatic hypotension will have her follow-up in the clinic. Departure - Departure Time of Disposition: 05:17 Disposition: Home, Self-Care 01 Clinical Impression: Atrial fibrillation with RVR Instructions: Atrial Fibrillation, [id number] Referrals: Rebecca Simeon NP [Primary Care Provider] - Forms: ED Department Discharge Additional Instructions: Return to the emergency room with any questions problems or worsening symptoms. Follow-up in the clinic this next week for recheck. Discuss if your medication should be adjusted perhaps to reduce the chances of having these rapid pulse rates with your A. fib. I did not adjust your medication here in the emergency room with concerns that I do not want to lower your blood pressure too much. Continue your current medications as prescribed Sepsis Event Note (ED) - Evaluation Sepsis Screening Result: No Definite Risk - Focused Exam Vital Signs: Vital Signs Temp Pulse Resp BP Pulse Ox 11/15/20 01:17 36.4 C 145 H 16 112/87 97 - My Orders Last 24 Hours: My Active Orders 11/15/20 01:15 EKG 12 Lead [EKG Documentation Completion] [RC] ROUTINE 11/15/20 01:23 EKG 12 Lead [EKG Documentation Completion] [RC] ROUTINE 11/15/20 01:39 Chest 1V Frontal [CR] Stat - Assessment/Plan Last 24 Hours: My Active Orders 11/15/20 01:15 EKG 12 Lead [EKG Documentation Completion] [RC] ROUTINE 11/15/20 01:23 EKG 12 Lead [EKG Documentation Completion] [RC] ROUTINE 11/15/20 01:39 Chest 1V Frontal [CR] Stat
--- NOTE | 2020-11-17 07:11 | CR ---
Chest: AP portable view of the chest was obtained. Comparison: Prior chest x-ray of 04/06/20. Heart size and mediastinum are within normal limits for AP technique. Lungs are hyperinflated. No acute parenchymal change is seen. Slight lobulation of the left hemidiaphragm is noted. Bony structure shows nothing acute. Impression: 1. Lungs are hyperinflated compatible with emphysematous change. 2. Other findings as noted above. Nothing acute is seen. Diagnostic code #2
== END 2020-11-15 05:45 | disposition home or self-care (01) ==
LOC: JD.ED 01:13
DX: I48.91 Unspecified atrial fibrillation (principal); J44.9 Chronic obstructive pulmonary disease, unspecified; Z79.01 Long term (current) use of anticoagulants; Z79.899 Other long term (current) drug therapy; Z88.5 Allergy status to narcotic agent; Z72.0 Tobacco use
CPT/HCPCS: 36415; 71045; 71045-26; 80053; 83735; 84484; 85025; 93005; 93010; 99284; 99285-25

== ENCOUNTER 2022-03-16 01:18 | Emergency (ER) | payer MEDICARE, BC ==
[2022-03-16 02:43] LABS: ESTIMATED GFR 77 mL/min (>60)
[2022-03-16 03:22] VITALS: BP 111/76; PULSE 70
== END 2022-03-16 03:23 | disposition home or self-care (01) ==
LOC: JD.ED 01:18
DX: I48.0 Paroxysmal atrial fibrillation (principal); J44.9 Chronic obstructive pulmonary disease, unspecified; F17.210 Nicotine dependence, cigarettes, uncomplicated; Z88.5 Allergy status to narcotic agent; Z79.01 Long term (current) use of anticoagulants
CPT/HCPCS: 36415; 80053; 84484; 85007; 85027; 93005; 93010; 99284; 99285

== ENCOUNTER 2022-05-29 14:08 | Emergency (ER) | payer MEDICARE, BC ==
[2022-05-29] MEDS ORDERED: Sodium Chloride 0.9% 10 ML Syringe FLUSH PRN (14:27)
[2022-05-29] MEDS ORDERED: Dextrose 5%-0.9% NaCl 1,000 ML IV SCH (14:45)
[2022-05-29] MEDS ORDERED: Iopamidol 755 Mg/ML 100 ML Bottle IVPUSH ONE (17:36)
[2022-05-29] MEDS ORDERED: Acetaminophen 325 MG Tab PO ONE (17:43)
[2022-05-29] MEDS ORDERED: Metoclopramide 5 MG Tab PO ONE (17:43)
[2022-05-29] MEDS ORDERED: Sodium Chloride 0.9% 100 ML IV SCH (17:45)
[2022-05-29 17:48] VITALS: BP 163/77; PULSE 73
== END 2022-05-29 18:03 | disposition home or self-care (01) ==
LOC: JD.ED 14:08
DX: I63.9 Cerebral infarction, unspecified (principal); I48.20 Chronic atrial fibrillation, unspecified; J44.9 Chronic obstructive pulmonary disease, unspecified; R94.31 Abnormal electrocardiogram [ECG] [EKG]; Z88.5 Allergy status to narcotic agent; Z79.01 Long term (current) use of anticoagulants; Z79.899 Other long term (current) drug therapy
CPT/HCPCS: 36415; 70450; 70496; 70498; 80053; 80307; 83735; 83880; 84484; 85025; 85610; 85730; 93005; 99285; A9270; Q9967; 93010

== ENCOUNTER 2022-05-30 07:40 | Inpatient (IN) | payer MEDICARE, BC ==
[2022-05-30] MEDS ORDERED: HYDROmorphone 0.5 MG/0.5 ML Syringe IVPUSH ONE (07:46)
[2022-05-30] MEDS ORDERED: Metoclopramide 10 MG/2 ML SDV IVPUSH ONE (07:46)
[2022-05-30] MEDS: Dextrose 5%-0.9% NaCl 1,000 ML IV SCH ×2 (08:25→20:56)
[2022-05-30 08:48] LABS: ESTIMATED GFR 94 mL/min (>60)
[2022-05-30] MEDS ORDERED: LORazepam 2 MG/ML SDV IVPUSH ONE (11:32)
[2022-05-30] MEDS ORDERED: Ondansetron 4 MG/2 ML SDV IVPUSH PRN (17:10)
[2022-05-30] MEDS ORDERED: Magnesium Hydroxide 400 MG/5 ML Susp 30 ML Cup PO PRN (17:55)
[2022-05-30] MEDS: Apixaban 5 MG Tab PO SCH ×2 (18:22→20:55)
[2022-05-30] MEDS: Ondansetron 4 MG Tab.DIS PO PRN (18:22)
[2022-05-30] MEDS ORDERED: Apixaban 5 MG Tab PO SCH (21:00)
[2022-05-31] MEDS: Formoterol/Mometasone 200-5 MCG 8.8 GM Inhaler IH SCH ×2 (07:59→20:22)
[2022-05-31] MEDS: Apixaban 5 MG Tab PO SCH ×2 (08:51→20:15)
[2022-05-31] MEDS: Dextrose 5%-0.9% NaCl 1,000 ML IV SCH (09:34)
[2022-06-01] MEDS: Dextrose 5%-0.9% NaCl 1,000 ML IV SCH (00:13)
[2022-06-01] MEDS: Apixaban 5 MG Tab PO SCH (08:07)
[2022-06-01] MEDS: Ondansetron 4 MG Tab.DIS PO PRN (08:07)
[2022-06-01] MEDS: Formoterol/Mometasone 200-5 MCG 8.8 GM Inhaler IH SCH (08:21)
[2022-06-01 11:39] VITALS: BP 143/89; PULSE 88
[2022-06-01] MEDS ORDERED: atorvaSTATin 20 MG Tab PO SCH (21:00)
[2022-06-02] MEDS ORDERED: Magnesium Oxide 400 MG Tab PO SCH (09:00)
== END 2022-06-01 15:09 | disposition home or self-care (01) | DRG 69 ==
LOC: JD.ED 07:40 → JD.ICU 12:38
PROVIDERS: ADMIT Pediatrics; ATTEND Pediatrics
DX: I63.411 Cerebral infarction due to embolism of right middle cerebral artery (principal); G45.9 Transient cerebral ischemic attack, unspecified; H54.7 Unspecified visual loss; I48.91 Unspecified atrial fibrillation; J43.1 Panlobular emphysema; Z88.8 Allergy status to other drugs, medicaments and biological substances; F17.210 Nicotine dependence, cigarettes, uncomplicated; Z96.641 Presence of right artificial hip joint; Z86.73 Personal history of transient ischemic attack (TIA), and cerebral infarction without residual deficits; Z98.49 Cataract extraction status, unspecified eye; Z79.899 Other long term (current) drug therapy; Z79.01 Long term (current) use of anticoagulants; Z88.5 Allergy status to narcotic agent
CPT/HCPCS: 36415; 70450; 80053; 85025; 86140; J1170; J2060; J2765; J7042; 70551; 70551-26; 94640; 97116-GP; 97161-GP; 97162-GP; 97166-GO; A9270-GY

== ENCOUNTER 2022-10-12 10:22 | Emergency (ER) | payer MEDICARE, BC ==
[2022-10-12 11:20] VITALS: BP 180/122; PULSE 68
[2022-10-12] MEDS ORDERED: fentaNYL 100 MCG/2 ML SDV IVPUSH ONE (11:20)
== END 2022-10-12 13:59 | disposition home or self-care (01) ==
LOC: JD.ED 10:22 → SUPCPDRO 10:22 → JD.ED 13:59
DX: K52.9 Noninfective gastroenteritis and colitis, unspecified (principal); I48.91 Unspecified atrial fibrillation; J44.9 Chronic obstructive pulmonary disease, unspecified; Z86.73 Personal history of transient ischemic attack (TIA), and cerebral infarction without residual deficits; Z88.5 Allergy status to narcotic agent; Z79.01 Long term (current) use of anticoagulants; Z79.899 Other long term (current) drug therapy
CPT/HCPCS: 72192; 96374; 99284; J3010; 99283

== ENCOUNTER 2022-10-13 14:47 | Observation (INO) | payer MEDICARE, BC ==
[2022-10-13] MEDS ORDERED: Sodium Chloride 0.9% 10 ML Syringe FLUSH PRN (16:11)
[2022-10-13] MEDS ORDERED: Ondansetron 4 MG/2 ML SDV IVPUSH ONE (16:11)
[2022-10-13] MEDS ORDERED: Sodium Chloride 0.9% 1,000 ML IV ONE (16:38)
[2022-10-13] MEDS ORDERED: Sodium Chloride 0.9% 10 ML SDV FLUSH ONE (16:52)
[2022-10-13] MEDS ORDERED: Iopamidol 612 MG/ML 100 ML Bottle IVPUSH ONE (16:52)
[2022-10-13 17:12] LABS: ESTIMATED GFR 93 mL/min (>60)
[2022-10-13] MEDS ORDERED: Acetaminophen 325 MG Tab PO PRN (18:54)
[2022-10-13] MEDS ORDERED: Ketorolac 30 MG/ML SDV IV PRN (18:54)
[2022-10-13] MEDS ORDERED: Dextrose 5%-0.45% NaCl 1,000 ML IV SCH (19:00)
[2022-10-13] MEDS ORDERED: traMADol 50 MG Tab PO PRN (19:06)
[2022-10-13] MEDS: cefTRIAXone 2 GM in Sodium Chloride 0.9% 100 ML IV SCH (19:44)
[2022-10-13] MEDS ORDERED: Apixaban 5 MG Tab PO ONE (21:26)
[2022-10-13] MEDS: Albuterol 0.083% 2.5 MG/3 ML Neb Soln NEB PRN (21:44)
[2022-10-14] MEDS: Docusate Sodium 100 MG Cap PO SCH (08:39)
[2022-10-14] MEDS ORDERED: Non-Formulary Medication 1 Each (Albuterol 18 GM Inhaler) INH PRN (08:39)
[2022-10-14] MEDS: Albuterol 0.083% 2.5 MG/3 ML Neb Soln NEB PRN ×2 (09:01→14:08)
[2022-10-14] MEDS ORDERED: Docusate Sodium 100 MG Cap PO PRN (09:43)
[2022-10-14] MEDS ORDERED: Ondansetron 4 MG/2 ML SDV IV PRN (09:43)
[2022-10-14] MEDS ORDERED: Magnesium Sulfate/Water 2 GM in Premix Bag 1 BAG IV ONE (10:16)
[2022-10-14] MEDS: Nicotine 14 MG/24 Hr Patch TRDERM SCH ×2 (10:39→10:46)
[2022-10-14] MEDS: Diltiazem 120 MG Cap.CD PO SCH (13:53)
[2022-10-14] MEDS: Apixaban 5 MG Tab PO SCH ×2 (13:54→23:50)
[2022-10-14] MEDS: cefTRIAXone 2 GM in Sodium Chloride 0.9% 100 ML IV SCH (20:03)
[2022-10-15] MEDS ORDERED: Magnesium Oxide 400 MG Tab PO ONE (08:13)
[2022-10-15] MEDS ORDERED: Potassium Chloride 20 MEQ Tab.ER PO SCH (09:00)
[2022-10-15] MEDS: Apixaban 5 MG Tab PO SCH (10:00)
[2022-10-15] MEDS: Diltiazem 120 MG Cap.CD PO SCH (10:01)
[2022-10-15] MEDS: Docusate Sodium 100 MG Cap PO SCH (10:01)
[2022-10-15] MEDS: Nicotine 14 MG/24 Hr Patch TRDERM SCH (10:02)
[2022-10-15 12:18] VITALS: BP 139/70; PULSE 65
== END 2022-10-15 12:12 | disposition home or self-care (01) ==
LOC: JD.ED 14:47 → JD.MS 18:43
PROVIDERS: ADMIT Hospitalist; ATTEND Hospitalist
DX: R11.2 Nausea with vomiting, unspecified (principal); F17.210 Nicotine dependence, cigarettes, uncomplicated; J43.9 Emphysema, unspecified; K44.9 Diaphragmatic hernia without obstruction or gangrene; Z88.6 Allergy status to analgesic agent; Z79.899 Other long term (current) drug therapy; Z79.01 Long term (current) use of anticoagulants; Z98.890 Other specified postprocedural states
CPT/HCPCS: 36415; 71045; 74177; 80048; 80053; 81001; 83735; 85025; 86140; 94640; 94760; 97110; 97161; 97166; A9270; J0696; J2405; J3475; J3490; J7030; Q9967; 96361; 96365; 96375; 99284; 99285-25; J7620-GY

== ENCOUNTER 2023-10-31 18:56 | Inpatient (IN) | payer MEDICARE, BC ==
[2023-10-31] MEDS: fentaNYL 100 MCG/2 ML SDV IVPUSH ONE ×3 (20:06→20:51)
[2023-10-31] MEDS: Sodium Chloride 0.9% 10 ML Syringe FLUSH PRN (20:07)
[2023-10-31 20:18] LABS: BASOPHILS ABSOLUTE AUTO 0.1 K/mm3 (0.0-0.2); BASOPHILS PERCENT AUTO 0.9 % (0.0-1.0); EOSINOPHILS ABSOLUTE AUTO 0.2 K/mm3 (0.0-0.4); EOSINOPHILS PERCENT AUTO 1.6 % (0.0-6.0); HEMATOCRIT 40.7 % (37.0-47.0); HEMOGLOBIN 13.5 gm/dl (12.0-16.0); IMMATURE GRAN ABSOLUTE AUTO 0.05 K/mm3 (0.00-0.05); IMMATURE GRAN PERCENT AUTO 0.3 % (0.0-0.4); LYMPHOCYTES ABSOLUTE AUTO 2.2 K/mm3 (1.0-4.8); LYMPHOCYTES PERCENT AUTO 14.9 % (24.0-44.0); MEAN CORPUSCULAR HEMOGLOBIN 31.6 pg (28.0-32.0); MEAN CORPUSCULAR HGB CONC 33.2 g/dl (32.0-36.0); MEAN CORPUSCULAR VOLUME 95.3 fl (83.0-99.0); MEAN PLATELET VOLUME 9.8 fl (9.4-12.3); MONOCYTES ABSOLUTE AUTO 0.9 K/mm3 (0.0-0.8); MONOCYTES PERCENT AUTO 6.2 % (0.0-8.0); NEUTROPHILS PERCENT AUTO 76.1 % (41.0-71.0); PLATELET COUNT,PLT 313 K/mm3 (150-400); RED BLOOD CELL COUNT 4.27 M/mm3 (4.10-5.30); WHITE BLOOD CELL COUNT,WBC 14.47 K/mm3 (3.9-11.3)
[2023-10-31] MEDS: Ondansetron 4 MG/2 ML SDV IVPUSH ONE ×2 (20:18→22:39)
[2023-10-31 20:37] LABS: ANION GAP 16.3 (5-15); CALCIUM 9.2 mg/dL (8.5-10.1); CREATININE 0.6 mg/dL (0.55-1.02); EST CRCL DRUG DOSING (CG) 48.92 mL/min; POTASSIUM,K 4.3 mEq/L (3.5-5.1)
[2023-10-31] MEDS ORDERED: Acetaminophen/HYDROcodone 325-5 MG Tab PO PRN (22:18)
[2023-10-31] MEDS ORDERED: Acetaminophen 325 MG Tab PO PRN (22:18)
[2023-10-31] MEDS ORDERED: Morphine 2 MG/ML SYRINGE IVPUSH PRN ×2 (22:18→22:25)
[2023-10-31] MEDS ORDERED: diphenhydrAMINE 50 MG/ML SDV IVPUSH PRN (22:40)
[2023-10-31] MEDS: HYDROmorphone 0.5 MG/0.5 ML Syringe IVPUSH PRN (23:30)
[2023-11-01] MEDS: Apixaban 5 MG Tab PO SCH (00:16)
[2023-11-01] MEDS: traMADol 50 MG Tab PO PRN (00:34)
[2023-11-01 04:55] LABS: BASOPHILS ABSOLUTE AUTO 0.1 K/mm3 (0.0-0.2); BASOPHILS PERCENT AUTO 0.5 % (0.0-1.0); EOSINOPHILS PERCENT AUTO 0.2 % (0.0-6.0); HEMATOCRIT 37.2 % (37.0-47.0); HEMOGLOBIN 12.3 gm/dl (12.0-16.0); IMMATURE GRAN ABSOLUTE AUTO 0.01 K/mm3 (0.00-0.05); IMMATURE GRAN PERCENT AUTO 0.1 % (0.0-0.4); LYMPHOCYTES ABSOLUTE AUTO 1.8 K/mm3 (1.0-4.8); LYMPHOCYTES PERCENT AUTO 17.1 % (24.0-44.0); MEAN CORPUSCULAR HEMOGLOBIN 31.1 pg (28.0-32.0); MEAN CORPUSCULAR HGB CONC 33.1 g/dl (32.0-36.0); MEAN CORPUSCULAR VOLUME 93.9 fl (83.0-99.0); MEAN PLATELET VOLUME 9.5 fl (9.4-12.3); MONOCYTES ABSOLUTE AUTO 0.7 K/mm3 (0.0-0.8); MONOCYTES PERCENT AUTO 7.1 % (0.0-8.0); NEUTROPHILS ABSOLUTE AUTO 7.8 K/mm3 (1.8-7.7); PLATELET COUNT,PLT 263 K/mm3 (150-400); RED BLOOD CELL COUNT 3.96 M/mm3 (4.10-5.30); WHITE BLOOD CELL COUNT,WBC 10.41 K/mm3 (3.9-11.3)
[2023-11-01 05:24] LABS: ANION GAP 12.8 (5-15); CALCIUM 8.8 mg/dL (8.5-10.1); CREATININE 0.5 mg/dL (0.55-1.02); EST CRCL DRUG DOSING (CG) 63.15 mL/min; POTASSIUM,K 3.8 mEq/L (3.5-5.1)
[2023-11-01] MEDS: Ondansetron 4 MG/2 ML SDV IVPUSH PRN (07:32)
[2023-11-01] MEDS: Metoclopramide 10 MG/2 ML SDV IVPUSH ONE (08:47)
[2023-11-01] MEDS: Lactated Ringers 1,000 ML IV SCH (09:17)
[2023-11-01] MEDS: Gabapentin 100 MG Cap PO SCH (12:45)
[2023-11-01] MEDS: Diltiazem 120 MG Cap.CD PO SCH (12:45)
[2023-11-01] MEDS: Bisacodyl 5 MG Tab PO SCH (12:46)
[2023-11-01 17:48] LABS: APPEARANCE,URINE CLEAR (Clear); BILIRUBIN,URINE NEGATIVE (Negative); COLOR,URINE YELLOW (Yellow); GLUCOSE,URINE NEGATIVE (Negative); KETONES,URINE NEGATIVE (Negative); LEUKOCYTE ESTERASE,URINE TRACE (Negative); NITRITE,URINE NEGATIVE (Negative); OCCULT BLOOD,URINE NEGATIVE (Negative); PROTEIN,URINE NEGATIVE (Negative); UROBILINOGEN,URINE 0.2 (0.2-1.0)
[2023-11-01 18:18] LABS: RBC,URINE 0-5 /hpf (0-5)
[2023-11-01 18:19] LABS: BACTERIA,URINE MANY /hpf (FEW); MUCUS,URINE FEW /hpf (FEW); SQUAMOUS EPITHELIAL CELLS,UR 0-5 /hpf (0-5); WBC,URINE 20-30 /hpf (0-5)
[2023-11-01] MEDS ORDERED: cefTRIAXone 1 GM in Sodium Chloride 0.9% 100 ML IV SCH (18:45)
[2023-11-01] MEDS: cefTRIAXone 1 GM in Sodium Chloride 0.9% 100 ML IV SCH (19:48)
[2023-11-01] MEDS: Sennosides 8.6 MG Tab PO SCH (21:12)
[2023-11-02 04:44] LABS: BASOPHILS ABSOLUTE AUTO 0.1 K/mm3 (0.0-0.2); BASOPHILS PERCENT AUTO 0.5 % (0.0-1.0); EOSINOPHILS ABSOLUTE AUTO 0.1 K/mm3 (0.0-0.4); EOSINOPHILS PERCENT AUTO 0.7 % (0.0-6.0); HEMATOCRIT 37.1 % (37.0-47.0); HEMOGLOBIN 12.3 gm/dl (12.0-16.0); IMMATURE GRAN ABSOLUTE AUTO 0.04 K/mm3 (0.00-0.05); IMMATURE GRAN PERCENT AUTO 0.4 % (0.0-0.4); LYMPHOCYTES PERCENT AUTO 18.7 % (24.0-44.0); MEAN CORPUSCULAR HEMOGLOBIN 31.3 pg (28.0-32.0); MEAN CORPUSCULAR HGB CONC 33.2 g/dl (32.0-36.0); MEAN CORPUSCULAR VOLUME 94.4 fl (83.0-99.0); MEAN PLATELET VOLUME 9.5 fl (9.4-12.3); MONOCYTES ABSOLUTE AUTO 1.1 K/mm3 (0.0-0.8); MONOCYTES PERCENT AUTO 10.3 % (0.0-8.0); NEUTROPHILS ABSOLUTE AUTO 7.2 K/mm3 (1.8-7.7); NEUTROPHILS PERCENT AUTO 69.4 % (41.0-71.0); PLATELET COUNT,PLT 275 K/mm3 (150-400); RED BLOOD CELL COUNT 3.93 M/mm3 (4.10-5.30); WHITE BLOOD CELL COUNT,WBC 10.41 K/mm3 (3.9-11.3)
[2023-11-02 05:22] LABS: ANION GAP 10.7 (5-15); BUN/CREATININE RATIO 21.7 (14-18); CALCIUM 8.5 mg/dL (8.5-10.1); CREATININE 0.6 mg/dL (0.55-1.02); EST CRCL DRUG DOSING (CG) 52.91 mL/min; POTASSIUM,K 3.7 mEq/L (3.5-5.1)
[2023-11-02] MEDS: Glycerin Adult 2 GM Supp RECTAL ONE (15:33)
[2023-11-02] MEDS: Lactulose Soln 10 GM/15 ML 30 ML UD Cup PO ONE (17:03)
[2023-11-03] MEDS: Metoclopramide 10 MG/2 ML SDV IVPUSH ONE (03:20)
[2023-11-03 04:32] LABS: BASOPHILS PERCENT AUTO 0.2 % (0.0-1.0); EOSINOPHILS PERCENT AUTO 0.3 % (0.0-6.0); HEMATOCRIT 43.2 % (37.0-47.0); HEMOGLOBIN 14.4 gm/dl (12.0-16.0); IMMATURE GRAN ABSOLUTE AUTO 0.04 K/mm3 (0.00-0.05); IMMATURE GRAN PERCENT AUTO 0.3 % (0.0-0.4); LYMPHOCYTES ABSOLUTE AUTO 1.3 K/mm3 (1.0-4.8); LYMPHOCYTES PERCENT AUTO 10.6 % (24.0-44.0); MEAN CORPUSCULAR HEMOGLOBIN 31.4 pg (28.0-32.0); MEAN CORPUSCULAR HGB CONC 33.3 g/dl (32.0-36.0); MEAN CORPUSCULAR VOLUME 94.3 fl (83.0-99.0); MONOCYTES ABSOLUTE AUTO 0.9 K/mm3 (0.0-0.8); MONOCYTES PERCENT AUTO 7.1 % (0.0-8.0); NEUTROPHILS ABSOLUTE AUTO 10.4 K/mm3 (1.8-7.7); NEUTROPHILS PERCENT AUTO 81.5 % (41.0-71.0); PLATELET COUNT,PLT 303 K/mm3 (150-400); RED BLOOD CELL COUNT 4.58 M/mm3 (4.10-5.30)
[2023-11-03 04:48] LABS: ANION GAP 9.7 (5-15); CALCIUM 9.9 mg/dL (8.5-10.1); CREATININE 0.7 mg/dL (0.55-1.02); EST CRCL DRUG DOSING (CG) 45.35 mL/min; POTASSIUM,K 3.7 mEq/L (3.5-5.1)
[2023-11-03 07:50] LABS: MAGNESIUM 1.8 mg/dL (1.8-2.4); PHOSPHORUS 4.8 mg/dL (2.6-4.7)
[2023-11-03] MEDS: Polyethylene Glycol 3350 Powder 17 GM Packet PO PRN (08:50)
[2023-11-03 09:34] LABS: TSH 4.931 uIU/mL (0.358-3.74)
[2023-11-03 09:53] LABS: T4 FREE 1.19 ng/dL (0.76-1.46)
[2023-11-03] MEDS: Polyethylene Glycol/Electrolytes 4,000 ML Bottle PO ONE (11:21)
[2023-11-03] MEDS: Lactulose Soln 10 GM/15 ML 30 ML UD Cup ONE (13:30)
[2023-11-03] MEDS ORDERED: Promethazine 12.5 MG in Sodium Chloride 0.9% 50 ML IV PRN (14:59)
[2023-11-03] MEDS: Metoclopramide 10 MG/2 ML SDV IVPUSH PRN (18:11)
[2023-11-03] MEDS: ALPRAZolam 0.25 MG Tab PO PRN (20:45)
[2023-11-04 04:59] LABS: BASOPHILS PERCENT AUTO 0.3 % (0.0-1.0); EOSINOPHILS PERCENT AUTO 0.1 % (0.0-6.0); HEMATOCRIT 36.1 % (37.0-47.0); IMMATURE GRAN ABSOLUTE AUTO 0.03 K/mm3 (0.00-0.05); IMMATURE GRAN PERCENT AUTO 0.3 % (0.0-0.4); LYMPHOCYTES ABSOLUTE AUTO 1.2 K/mm3 (1.0-4.8); LYMPHOCYTES PERCENT AUTO 10.4 % (24.0-44.0); MEAN CORPUSCULAR HEMOGLOBIN 31.7 pg (28.0-32.0); MEAN CORPUSCULAR HGB CONC 33.2 g/dl (32.0-36.0); MEAN CORPUSCULAR VOLUME 95.5 fl (83.0-99.0); MEAN PLATELET VOLUME 9.6 fl (9.4-12.3); MONOCYTES ABSOLUTE AUTO 1.3 K/mm3 (0.0-0.8); MONOCYTES PERCENT AUTO 11.3 % (0.0-8.0); NEUTROPHILS ABSOLUTE AUTO 8.8 K/mm3 (1.8-7.7); NEUTROPHILS PERCENT AUTO 77.6 % (41.0-71.0); PLATELET COUNT,PLT 246 K/mm3 (150-400); RED BLOOD CELL COUNT 3.78 M/mm3 (4.10-5.30); WHITE BLOOD CELL COUNT,WBC 11.28 K/mm3 (3.9-11.3)
[2023-11-04 05:13] LABS: ANION GAP 11.1 (5-15); CALCIUM 8.3 mg/dL (8.5-10.1); CREATININE 0.5 mg/dL (0.55-1.02); EST CRCL DRUG DOSING (CG) 63.29 mL/min; POTASSIUM,K 3.1 mEq/L (3.5-5.1)
[2023-11-04] MEDS: Potassium Chloride 10 MEQ in Premix Bag 1 BAG IV SCH ×2 (08:41→11:25)
[2023-11-04] MEDS: Potassium Chloride 20 MEQ Tab.ER PO ONE (08:42)
[2023-11-04] MEDS: Benzocaine 20% Topical Spray UD MUCMEM ONE (16:09)
[2023-11-04] MEDS: Famotidine 20 MG/2 ML SDV IV SCH (22:18)
[2023-11-04] MEDS: Polyethylene Glycol/Electrolytes 4,000 ML Bottle PO ONE (22:49)
[2023-11-04] MEDS: cefTRIAXone 1 GM in Sodium Chloride 0.9% 100 ML IV ONE (23:14)
[2023-11-05] MEDS: Albuterol/Ipratropium 3.0-0.5 MG/3 ML Neb Soln NEB PRN (07:03)
[2023-11-05 08:11] LABS: BASOPHILS PERCENT AUTO 0.2 % (0.0-1.0); EOSINOPHILS PERCENT AUTO 0.3 % (0.0-6.0); HEMATOCRIT 38.2 % (37.0-47.0); HEMOGLOBIN 12.7 gm/dl (12.0-16.0); IMMATURE GRAN ABSOLUTE AUTO 0.04 K/mm3 (0.00-0.05); IMMATURE GRAN PERCENT AUTO 0.3 % (0.0-0.4); LYMPHOCYTES PERCENT AUTO 8.7 % (24.0-44.0); MEAN CORPUSCULAR HEMOGLOBIN 31.8 pg (28.0-32.0); MEAN CORPUSCULAR HGB CONC 33.2 g/dl (32.0-36.0); MEAN CORPUSCULAR VOLUME 95.5 fl (83.0-99.0); MEAN PLATELET VOLUME 8.9 fl (9.4-12.3); MONOCYTES ABSOLUTE AUTO 0.9 K/mm3 (0.0-0.8); MONOCYTES PERCENT AUTO 7.7 % (0.0-8.0); NEUTROPHILS ABSOLUTE AUTO 9.7 K/mm3 (1.8-7.7); NEUTROPHILS PERCENT AUTO 82.8 % (41.0-71.0); PLATELET COUNT,PLT 244 K/mm3 (150-400); WHITE BLOOD CELL COUNT,WBC 11.66 K/mm3 (3.9-11.3)
[2023-11-05 08:36] LABS: ANION GAP 10.3 (5-15); BILIRUBIN TOTAL 0.7 mg/dL (0.2-1.0); CALCIUM 8.7 mg/dL (8.5-10.1); CREATININE 0.6 mg/dL (0.55-1.02); EST CRCL DRUG DOSING (CG) 50.43 mL/min; MAGNESIUM 1.6 mg/dL (1.8-2.4); POTASSIUM,K 3.3 mEq/L (3.5-5.1)
[2023-11-05] MEDS ORDERED: Magnesium Sulfate (4.06 MEQ/ML) 5 GM/10 ML SDV IV ONE (11:25)
[2023-11-05] MEDS: Potassium Chloride 10 MEQ in Premix Bag 1 BAG IV SCH (11:49)
[2023-11-05] MEDS: Glycerin Adult 2 GM Supp RECTAL ONE (12:58)
[2023-11-05] MEDS: Magnesium Sulfate/Water 2 GM in Premix Bag 1 BAG IV ONE (14:57)
[2023-11-05] MEDS: Lactated Ringers 1,000 ML IV SCH (19:11)
[2023-11-05 20:28] VITALS: BP 130/79
[2023-11-05] MEDS: Benzocaine 20% Topical Spray UD MUCMEM ONE (22:22)
[2023-11-06 00:11] VITALS: PULSE 71
== END 2023-11-05 23:48 | DRG 560 ==
LOC: JD.ED 18:56 → JD.MS 21:52 → OBSVTOIN 11-02 16:22
PROVIDERS: ADMIT Student in an Organized Health Care Education/Training Program; ATTEND Student in an Organized Health Care Education/Training Program
DX: R10.32 Left lower quadrant pain (principal); M25.552 Pain in left hip; J44.9 Chronic obstructive pulmonary disease, unspecified; T84.84XA Pain due to internal orthopedic prosthetic devices, implants and grafts, initial encounter; E87.1 Hypo-osmolality and hyponatremia; I48.20 Chronic atrial fibrillation, unspecified; J44.1 Chronic obstructive pulmonary disease with (acute) exacerbation; Z66 Do not resuscitate; K45.8 Other specified abdominal hernia without obstruction or gangrene; B96.89 Other specified bacterial agents as the cause of diseases classified elsewhere; I11.0 Hypertensive heart disease with heart failure; D72.829 Elevated white blood cell count, unspecified; N30.90 Cystitis, unspecified without hematuria; Z96.643 Presence of artificial hip joint, bilateral; K59.00 Constipation, unspecified; I50.9 Heart failure, unspecified; Z88.5 Allergy status to narcotic agent; Z79.899 Other long term (current) drug therapy; Z87.891 Personal history of nicotine dependence; Z79.01 Long term (current) use of anticoagulants; Z98.49 Cataract extraction status, unspecified eye; Z79.51 Long term (current) use of inhaled steroids; Z86.73 Personal history of transient ischemic attack (TIA), and cerebral infarction without residual deficits
CPT/HCPCS: 36415 ×3; 72192; 73502; 80048 ×3; 81001; 81003; 83605; 85025 ×3; 87086; 87088; 87186; 94761; 94762; 96374; 96375; 96376; 97110 ×2; 97161; 99284; A9270 ×10; J0696; J1170 ×2; J2405 ×5; J2765; J3010 ×3; J3490 ×2; J7120; 71045; 71045-26; 74018; 74018-26; 74176; 74176-26; 80053; 83735; 84100; 84439; 84443; 93005; 94640; 94760; 96365; G0378; J3475; J3480; J7620-GY